=== PATIENT | female | born 1950 | race Caucasian/White ===

== ENCOUNTER 2019-06-21 07:26 | Outpatient (RCR) | payer MEDICARE, OTHER, SELFPAY | END 2019-07-19 23:59 | disposition home or self-care (01) | LOC: SPT 07:26 | PROVIDERS: PCP Physician Assistant; Referring Provider Physician Assistant; Visit Provider Physician Assistant | DX: M70.61 Trochanteric bursitis, right hip (principal); M89.8X1 Other specified disorders of bone, shoulder | CPT/HCPCS: 97110; 97161; G0283 ==

== ENCOUNTER 2019-07-20 06:00 | Outpatient (RCR) | payer MEDICARE, OTHER, SELFPAY | END 2019-08-18 23:59 | disposition home or self-care (01) | LOC: SPT 06:00 | PROVIDERS: PCP Physician Assistant; Referring Provider Physician Assistant; Visit Provider Physician Assistant | DX: M70.61 Trochanteric bursitis, right hip (principal); G89.29 Other chronic pain; M89.8X8 Other specified disorders of bone, other site | CPT/HCPCS: 97110; G0283 ==

== ENCOUNTER 2020-03-09 15:43 | Outpatient (CLI) | payer MEDICARE, OTHER, SELFPAY ==
--- NOTE | 2020-03-09 15:51 | MRR_ITS ---
PROCEDURE INFORMATION: Exam: MR Cervical Spine Without Contrast Exam date and time: 03/09/2020 3:58 PM Age: 69 years old Clinical indication: Neck pain and other: Right arm pain; Patient HX: Pain for 6-8 months; Additional info: Cervical radiculopathy TECHNIQUE: Imaging protocol: Multiplanar magnetic resonance images of the cervical spine without contrast. COMPARISON: MRI Cervical Spine w/o* [id number] 03/19/2016 7:16 AM FINDINGS: Vertebrae: Vertebral body heights are preserved. No compression fractures are noted. Vertebral alignment is physiologic. Spinal cord: Cervical spinal cord is normal in diameter and signal intensity. No focal spinal cord lesion demonstrated. The visualized portion of the posterior fossa is unremarkable. C2-C3: Minimal 2 mm focal central disc protrusion noted. This has increased in size slightly when compared to 03/19/2016. No neural foraminal or central spinal canal stenosis. C3-C4: Normal disc height and signal. Broad-based 2 mm posterior disc protrusion. Mild hypertrophic changes of the facet and uncovertebral joints. Mild central spinal canal stenosis and mild bilateral neural foraminal stenosis. C4-C5: Moderate disc degeneration. 2 mm posterior disc/osteophyte complex. Mild spinal canal stenosis and mild right neural foraminal stenosis noted. C5-C6: Advanced disc degeneration and 3 mm posterior disc/osteophyte complex. Mild central spinal canal stenosis and moderate bilateral neural foraminal stenosis, left worse than right. C6-C7: Mild disc degeneration and 2 mm posterior disc/osteophyte complex. No spinal canal or neural foraminal stenosis. C7-T1: Disc height and signal are normal. No disc bulge or disc protrusion. No spinal canal or neural foraminal stenosis. Vertebral arteries: Expected flow voids in the vertebral arteries. Soft tissues: The cervical soft tissues, as demonstrated, are unremarkable. MR/MR cervical spin wo con* [id number] IMPRESSION: 1. 2 mm disc/osteophyte complex at C4-C5. This is associated with mild spinal canal stenosis and mild right neural foraminal stenosis. This is new when compared to 03/19/2016. 2. 3 mm posterior disc/osteophyte complex at C5-C6. This is associated with mild spinal canal stenosis and moderate bilateral neural foraminal stenosis. Findings at this level have worsened slightly when compared to the previous study. 3. 2 mm focal central disc protrusion without associated stenosis or cord impingement at C2-C3. The protrusion has increased in size slightly when compared to the previous study. 4. Broad-based 2 mm posterior disc protrusion at C3-C4 with mild spinal canal stenosis and mild bilateral neural foraminal stenosis. This is unchanged. 5. 2 mm posterior disc/osteophyte complex at C6-C7. No significant spinal canal or neural foraminal stenosis associated.
== END 2020-03-09 15:44 | disposition home or self-care (01) ==
LOC: RADSHAW 15:47
PROVIDERS: PCP Physician Assistant; Visit Provider Physician Assistant
DX: M25.78 Osteophyte, vertebrae (principal); M50.21 Other cervical disc displacement, high cervical region
CPT/HCPCS: 72141

== ENCOUNTER → 2021-06-20 08:01 | Outpatient (BNVA) | payer MEDICARE, OTHER, SELFPAY | PROVIDERS: PCP Physician Assistant; Referring Provider Physician Assistant; Visit Provider Specialist | DX: G56.03 Carpal tunnel syndrome, bilateral upper limbs (principal) | CPT/HCPCS: 95910 ==

== ENCOUNTER → 2022-02-11 14:35 | Outpatient (BNVA) | payer MEDICARE, OTHER, SELFPAY | PROVIDERS: PCP Physician Assistant; Visit Provider Nurse Practitioner Women's Health | DX: Z12.4 Encounter for screening for malignant neoplasm of cervix (principal); N95.1 Menopausal and female climacteric states | CPT/HCPCS: 87624 ==

== ENCOUNTER 2022-03-11 12:51 | Outpatient (CLI) | payer MEDICARE, OTHER, SELFPAY ==
--- NOTE | 2022-03-11 12:58 | MM_ITS ---
WS: [id number] BILATERAL 3D TOMOSYNTHESIS DIGITAL SCREENING MAMMOGRAPHY WITH CAD CLINICAL INFORMATION: SCREEN HISTORY: Screening mammogram. No current complaints. COMPARISON: 2018 TECHNIQUE: Bilateral CC and MLO views. FINDINGS: The breasts are composed of heterogeneous fibroglandular density tissue, which can limit the detectio n of small underlying mass lesions. Small nodules inner LEFT breast best seen on the cc view appear m ore prominent or new compared to previous. Recommend LEFT breast diagnostic mammography and ultrasoun d. RIGHT breast appears unchanged. Punctate and lucent center calcifications. MM/[place] [id number] IMPRESSION: BI-RADS: 0-Incomplete: Need additional imaging evaluation FOLLOW UP: Need Additional Imaging Recommend LEFT breast diagnostic mammography and ultrasound.
== END 2022-03-11 12:52 | disposition home or self-care (01) ==
LOC: RAD 12:56
PROVIDERS: PCP Physician Assistant; Visit Provider Nurse Practitioner Women's Health
DX: Z12.31 Encounter for screening mammogram for malignant neoplasm of breast (principal)
CPT/HCPCS: 77063; 77067

== ENCOUNTER 2022-03-21 13:01 | Outpatient (CLI) | payer MEDICARE, OTHER, SELFPAY ==
--- NOTE | 2022-03-21 13:30 | XR_ITS ---
WS: [email or web address] SCREENING DEXA SCAN [place] CLINICAL INFORMATION: Z78.0 - Asymptomatic menopausal state COMPARISON: None. FINDINGS: The L1-L4 bone mineral density measures 1.273 g/cm2. This corresponds to a T score score of 0.8 and Z score of 1.9. Left femoral neck bone mineral density measures 0.986 (g/cm2). This corresponds to a T score of -0.2 (no units) and Z score of 0.9 (no units). XR/XR DEXA axial skeleton* [id number] IMPRESSION: Normal bone mineralization lumbar spine. Normal bone mineral density LEFT femor al neck. Patient's FRAX calculated 10 year probability for major osteoporotic fracture i s 7.9 % and osteoporotic hip fracture is 0.6%.
== END 2022-03-21 13:02 | disposition home or self-care (01) ==
LOC: RAD 13:02
PROVIDERS: PCP Physician Assistant; Visit Provider Nurse Practitioner Women's Health
DX: Z78.0 Asymptomatic menopausal state (principal)
CPT/HCPCS: 77080

== ENCOUNTER 2022-04-17 07:46 | Outpatient (CLI) | payer MEDICARE, OTHER, SELFPAY ==
--- NOTE | 2022-04-17 07:54 | MM_ITS ---
WS: [id number] LEFT 3D TOMOSYNTHESIS DIGITAL MAMMOGRAPHY WITH CAD CLINICAL INFORMATION: ABNORMAL MAMM COMPARISON: March 11, 2022 TECHNIQUE: 3 views of the left breast were obtained. FINDINGS: Scattered fibroglandular densities of the left breast. Again seen are the small cluster of nodules in the LEFT breast best seen on the cc view upper inner quadrant. Ultrasound described below. ULTRASOUND BREAST LEFT TECHNIQUE: Ultrasound left breast focused area of concern. CLINICAL INFORMATION: ABNORMAL MAMMO COMPARISON: None. FINDINGS: Ultrasound LEFT breast at the 9 to 12:00. At the 10:00 position is an incidental simple cyst measurin g 6 x 5 x 3 mm 1 cm from the nipple. At the 12:00 position, 1 cm from the nipple is a complex cystic lesion likely complex cyst or dilated duct measuring 7 x 5 x 3 mm. This is probably benign and recommend 6 month follow-up to confirm stab ility with attention to the 12:00 lesion. MM/[place] [id number] IMPRESSION: BI-RADS: 3-Probably Benign FOLLOW UP: 6 Month Follow-up Recommend 6 month follow-up LEFT breast diagnostic mammography and ultrasound.
== END 2022-04-17 07:47 | disposition home or self-care (01) ==
LOC: RAD 07:47
PROVIDERS: PCP Physician Assistant; Visit Provider Nurse Practitioner Women's Health
DX: R92.8 Other abnormal and inconclusive findings on diagnostic imaging of breast (principal); N63.25 Unspecified lump in the left breast, overlapping quadrants
CPT/HCPCS: 76642; 77061; G0279

== ENCOUNTER 2022-10-23 10:49 | Outpatient (CLI) | payer MEDICARE, OTHER, SELFPAY ==
--- NOTE | 2022-10-23 10:55 | MM_ITS ---
WS: [id number] LEFT 3D TOMOSYNTHESIS DIGITAL MAMMOGRAPHY WITH CAD CLINICAL INFORMATION: R92.8 - Other abnormal and inconclusive findings on diagn... HISTORY: Six-month follow-up COMPARISON: April 17, 2022 TECHNIQUE: 3 views of the left breast were obtained. FINDINGS: Scattered fibroglandular densities of the left breast. Stable previously described small cluster of n odules in the LEFT breast best seen on the cc view upper inner quadrant. No other significant interva l changes. Ultrasound described below. A few incidental punctate and lucent centered calcifications. ULTRASOUND BREAST LEFT TECHNIQUE: Ultrasound left breast focused area of concern. CLINICAL INFORMATION: R92.8 - Other abnormal and inconclusive findings on diagn... COMPARISON: April 17, 2022 FINDINGS: Ultrasound LEFT breast 10:00 position 1 cm from the nipple. Tiny cystic-appearing lesion measuring 4 x 2 x 2 mm appears slightly smaller compared to previous. In addition, ultrasound 12:00 position 1 cm from the nipple demonstrates small lobulated cyst or dila joseph duct measuring 3 x 3 x 2 mm stable compared to previous. These lesions have a benign appearance a nd recommend return to annual screening mammography. MM/[place] [id number] IMPRESSION: BI-RADS: 2-Benign FOLLOW UP: 1 Year Follow-up Recommend return to annual screening mammography.
--- NOTE | 2022-10-23 11:45 | US_ITS ---
WS: [id number] LEFT 3D TOMOSYNTHESIS DIGITAL MAMMOGRAPHY WITH CAD CLINICAL INFORMATION: R92.8 - Other abnormal and inconclusive findings on diagn... HISTORY: Six-month follow-up COMPARISON: April 17, 2022 TECHNIQUE: 3 views of the left breast were obtained. FINDINGS: Scattered fibroglandular densities of the left breast. Stable previously described small cluster of n odules in the LEFT breast best seen on the cc view upper inner quadrant. No other significant interva l changes. Ultrasound described below. A few incidental punctate and lucent centered calcifications. ULTRASOUND BREAST LEFT TECHNIQUE: Ultrasound left breast focused area of concern. CLINICAL INFORMATION: R92.8 - Other abnormal and inconclusive findings on diagn... COMPARISON: April 17, 2022 FINDINGS: Ultrasound LEFT breast 10:00 position 1 cm from the nipple. Tiny cystic-appearing lesion measuring 4 x 2 x 2 mm appears slightly smaller compared to previous. In addition, ultrasound 12:00 position 1 cm from the nipple demonstrates small lobulated cyst or dila joseph duct measuring 3 x 3 x 2 mm stable compared to previous. These lesions have a benign appearance a nd recommend return to annual screening mammography. US/US breast LT limited* [id number] IMPRESSION: BI-RADS: 2-Benign FOLLOW UP: 1 Year Follow-up Recommend return to annual screening mammography.
== END 2022-10-23 10:50 | disposition home or self-care (01) ==
LOC: RAD 10:50
PROVIDERS: PCP Physician Assistant; Visit Provider Nurse Practitioner Women's Health
DX: R92.8 Other abnormal and inconclusive findings on diagnostic imaging of breast (principal); N64.89 Other specified disorders of breast
CPT/HCPCS: 76642; 77061; G0279

== ENCOUNTER 2022-11-12 07:54 | Outpatient (CLI) | payer MEDICARE, OTHER, SELFPAY ==
--- NOTE | 2022-11-12 | ECG_ITS ---
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 Interpretive Statements NAME OF STUDY: EXERCISE SESTAMIBI STRESS TEST INDICATION: [Chest Pain on exertion] EXERCISE DATA: The patient was exercised by Mark protocol. Baseline heart rate was 54 beats per minute. Baseline blood pressure was 145/92 millimeters of mercury. Target heart rate was 127 beats per minute. Maximum heart rate achieved was 143, which was 112 % of the target heart rate. Maximum blood pressure was 226/68 millimeters of mercury. Total exercise time was 6 minutes 30 seconds. Maximum METs achieved was 10.2. The reason for ending the test was completion of protocol. The patient complained of shortness of breath during the stress test, which then resolved at the end of the test. ELECTROCARDIOGRAM: BASELINE: Showed sinus rhythm, normal axis, no significant ST-T changes at the baseline noted. [] EXERCISE: At the peak exercise level, [] No significant ST-T changes suggestive of ischemia noted. [] RECOVERY: During the recovery period, heart rate dropped appropriately. No significant ST-T changes in the recovery suggestive of ischemia noted. [] CONCLUSION: 1. Exercise capacity good. 2. Heart rate response was appropriate 3. Blood pressure response was appropriate 4. Symptoms not suggestive of ischemia. 5. Electrocardiogram portion of the stress test was not suggestive of ischemia. 6. Nuclear scan will be documented separately. Electronically Signed On 11-23-2022 15:06:31 CDT by Stone Luevano M.D. [id number]
[2022-11-12 08:26] VITALS: BMI 29.4
--- NOTE | 2022-11-12 08:34 | NMCV_ITS ---
NM yuli perf SPECT r/s* [id number] Alpa Major Age: 72 Gender: F : 1950 Exam Date: 11/12/2022 08:34 Ordering Phys: Kenia Anthony Technologist: MAKENZIE Borrego Exam Location: [facility] Indications: CHEST PAIN STRESS TEST Please see separate stress test report in [facility] for full findings IMAGE PROTOCOL Rest/Stress 1 Exercise Day Radiopharmaceutical Dose (mCi) Administration Site Administered by Rest: Tc-99m 10.6 IV MAKENZIE Borrego Sestamibi Stress:Tc-99m 32.5 IV MAKENZIE Ulrich Sestamibi Rest: 12-Nov-2022 60 Discovery 630 Stress: 12-Nov-2022 15 Discovery 630 Radiopharmaceutical was injected at 90 % maximum heart rate. Images obtained in supine and prone position. SPECT RESULTS Technical Quality: Excellent Raw Data Analysis: Normal Image Corrections: No attenuation or motion correction applied Summed Stress Score: 1 Summed Rest Score: 1 Summed Difference Score: 1 PERFUSION FINDINGS Very small sized perfusion defect noted in apical wall. This is consistent with attenuation artifact. No evidence of significant ischemia seen. FUNCTIONAL RESULTS (calculated via Gated SPECT) Stress Image LV EF (%): 74 Stress EDV (mL):88 TID: 0.95 Stress ESV (mL):23 FUNCTIONAL FINDINGS: There is normal left ventricular systolic function. IMPRESSIONS 1. Attenuation artifact seen in the apical wall. No evidence of ischemia 2. LV systolic function is normal Stone Luevano MD (Electronically Signed) Final Date: 17 November 2022 10:04 S
[2022-11-12 10:07] VITALS: BP 163/79; PULSE 58
== END 2022-11-12 07:55 | disposition home or self-care (01) ==
LOC: CDL 07:55
PROVIDERS: PCP Physician Assistant; Visit Provider Physician Assistant
DX: R07.9 Chest pain, unspecified (principal)
CPT/HCPCS: 36415; 78452; 93017; A9500

== ENCOUNTER 2023-04-07 21:29 | Emergency (ER) | payer MEDICARE, OTHER, SELFPAY ==
[2023-04-07 21:34] VITALS: BP 188/89; PULSE 79; RESP 18; TEMP 36.9; O2SAT 96; BMI 29.2
--- NOTE | 2023-04-07 21:48 | ED_ITS ---
HPI - Dizziness 2 General: Chief Complaint: Dizziness Stated Complaint: vertigo, N/V Time Seen by Provider: 04/07/23 21:36 History of Present Illness: HPI Narrative: Patient presents to the ER by EMS with complaints of nausea vomiting and severe vertigo. Patient states it started about 730 this morning it has been constant the entire day. Patient is not been able to eat or drink anything throughout the day secondary to nausea and vomiting. She has been able to keep her medicines down though. Patient states is worse when she lays on her left side and better when she lays on her back or her right side. Patient states she is never had this before. Patient has no focal neurologic deficits. Patient's blood pressure upon arrival was extremely high at 188/89. Review of Systems 2 General: Reports: 10 or more systems reviewed and unremarkable except in HPI and below PFSH ED 2 PFSH: Medical History No pertinent past medical history neg dx- htn, dm, dvt/pe, Urinary incontinence Menopause syndrome Asthma Gastroesophageal reflux Hyperlipidemia Hypothyroidism Surgical History History of hip replacement 10/30/20- right side History of cataract extraction (~08/2016) bilateral History of hysteroscopy (07/31/15) Hysteroscopy, polypectomy, D&C. Dx: PMPB, Polyp, Fibroid. Performed by Dr. Ahn at [facility] in [place], [place] History of nasal sinusotomy (~2014) performed in [place] History of hiatal hernia (~2007) Repair performed in [place], [place] Family History Mother Hypertension Hypercholesteremia Sister Hypertension Hypercholesteremia Thyroid disease Denies family history of Colon cancer Ovarian cancer Diabetes Breast cancer Uterine cancer Stroke Social History Substance/Drug Use: never Physical Exam 2 Const: COMMON NORMALS: no acute distress, average body habitus, patient oriented x3, no limitations, healthy appearing, alert and well nourished HENMT: COMMON NORMALS: normocephalic, atraumatic, hearing grossly normal bilaterally, external ears normal, Normal external nose present, moist oral mucous membranes and oropharynx normal HEAD & SCALP: normocephalic and atraumatic NOSE: Normal external nose present EXTERNAL EAR: Yes external ears normal Eye: COMMON NORMALS: Equal, round and reactive pupils present, EOMs intact bilaterally, conjunctivae normal and no scleral icterus CONJUNCTIVA: Yes conjunctivae normal PUPIL: Yes Equal, round and reactive pupils present Neck/C-Spine: COMMON NORMALS: full ROM, no lymphadenopathy, supple, no meningeal signs, no JVD and Thyroid normal THYROID: Thyroid normal Chest: COMMONS NORMALS: normal inspection of the chest and normal palpation of entire chest wall Resp: COMMON NORMALS: normal respiratory effort, No retractions, No use of accessory muscles and clear to auscultation bilaterally AUSCULTATION: clear to auscultation bilaterally Cardio: COMMON NORMALS: no JVD, regular rate, regular rhythm, S1 normal heart sound present, S2 normal heart sound present, No gallops present (Cardio), No clicks present (Cardio), No murmurs present (Cardio) and No rub (Cardio) R ATE: regular rate RHYTHM: regular rhythm HEART SOUNDS: S1 normal heart sound present and S2 normal heart sound present GI: COMMON NORMALS: Normal to inspection, nondistended, normoactive bowel sounds present, Soft to palpation, non-tender, No hepatosplenomegaly present and no masses PALPATION: Yes Soft to palpation and Yes No hepatosplenomegaly present Neuro: COMMON NORMALS: patient oriented x3 SENSORIUM/ORIENTATION: Yes alert MENINGEAL SIGNS: Yes no meningeal signs Course 2 Vital Signs: Vital signs: Vital Signs Temperature 98.5 F 04/07/23 21:34 Pulse Rate 62 04/08/23 00:20 Respiratory Rate 18 04/07/23 21:34 Blood Pressure 165/77 04/08/23 00:20 Pulse Oximetry 96 04/08/23 00:20 Oxygen Delivery Me thod Room Air 04/08/23 00:20 MDM - Dizziness Medical Decision Making Patient presents to the ER with complaints of nausea vomiting and vertigo. Patient had lab work included CBC CMP lipase urine all of which was essentially benign. Patient was given 1 L normal saline, meclizine 50 mg, and clonidine 0.1 mg. Blood pressure went down from 188/89-166 5/77. Patient will be discharged home to follow-up with her PCP in 7 to 10 days or sooner as needed. Differential Diagnosis Likely benign paroxysmal positional vertigo; Unlikely adverse reaction to drug, orthostatic hypotension, vertebral basilar insufficiency, cerebrovascular accident, acute vestibular neuronitis or transient cerebral ischemia Medical Records I reviewed the patient's medical records. Lab Data I reviewed the patient's lab results. 04/07/23 21:03 04/07/23 21:03 Laboratory Results WBC 8.95 10^3/uL (3.29-11.43) 04/07/23 21: RBC 5.38 10^6/uL (3.85-5.65) 04/07/23 21: Hgb 16.10 g/dL (11.27-16.99) 04/07/23: Hct 48.1 % (36-47) H 04/07/23: MCV 89.4 fl (85-98) 04/07/23 21: MCH 29.9 pg (27-33) 04/07/23: MCHC 33.5 g/dL (30-55) 04/07/23 21: RDW 12.6 % (12.1-15.1) 04/07/23 21: Plt Count 340 10^3/cmm (157-399) 04/07/23 21: MPV 9.0 fL (7.4-10.4) 04/07/23 21: Neut % (Auto) 72.8 % 04/07/23 21: Lymph % (Auto) 22.0 % 04/07/23 21: [place] % (Auto) 4.5 % 04/07/23: Eos % (Auto) 0.3 % 04/07/23: Baso % (Auto) 0.2 % 04/07/23: Neut # (Auto) 6.51 10^3/uL (1.8-7.7) 04/07/23: Lymph # (Auto) 2.0 10^3/uL (0.8-4.8) 04/07/23 21: [place] # (Auto) 0.4 10^3/uL (0.2-0.9) 04/07/23 21: Eos # (Auto) 0.0 10^3/uL (0.0-0.8) 04/07/23 21:03 Baso # (Auto) 0.0 10^3/uL (0.0-0.1) 04/07/23 21:03 Nucleated RBC % (auto) 0 % 04/07/23 21:03 Nucleated RBCs # 0.0 /100WBC 04/07/23 21:03 Sodium 140 mmol/L (136-145) 04/07/23 21:03 Potassium 3.9 mmol/L (3.5-5.1) 04/07/23 21:03 Chloride 100 mmol/L (98-107) 04/07/23 21:03 Carbon Dioxide 26 mmol/L (22-29) 04/07/23 21:03 Anion Gap 17.9 (5-19) 04/07/23 21:03 BUN 12 mg/dL (8-23) 04/07/23 21:03 Creatinine 0.7 mg/dL (0.5-0.9) 04/07/23 21:03 GFR Calculation 82.7 mL/min (90-130) L 04/07/23 21:03 Glucose 123 mg/dL (65-115) H 04/07/23 21:03 Calculated Osmolality 291 mOsm/kg (285-295) 04/07/23 21:03 Calcium 11.8 mg/dL (8.5-10.5) H 04/07/23 21:03 Magnesium 1.8 mg/dL (1.7-2.3) 04/07/23 21:03 Total Bilirubin 0.7 mg/dL (0.15-1.2) 04/07/23 21:03 AST 32 U/L (0-32) 04/07/23 21:03 ALT 35 U/L (0-33) H 04/07/23 21:03 Alkaline Phosphatase 90 U/L (35-105) 04/07/23 21:03 Total Protein 8.1 g/dL (6.6-8.7) 04/07/23 21:03 Albumin 5.1 g/dL (3.5-5.2) 04/07/23 21:03 Globulin 3.0 g/dL (1.3-4.6) 04/07/23 21:03 Lipase 47 U/L (13-60) 04/07/23 21:03 Urine Color Yellow (Yellow) 04/07/23 23:53 Urine Appearance Clear (CLEAR) 04/07/23 23:53 Urine pH 5 (5-7) 04/07/23 23:53 Ur Specific [place] 1.020 (1.005-1.030) 04/07/23 23:53 Urine Protein 2+ (Negative) H 04/07/23 23:53 Urine Glucose (UA) Norm (Normal) 04/07/23 23:53 Urine Ketones 1+ (Negative) H 04/07/23 23:53 Urine Blood Trace (Negative) H 04/07/23 23:53 Urine Nitrate Negative (Negative) 04/07/23 23:53 Urine Bilirubin Neg (Negative) 04/07/23 23:53 Urine Urobilinogen Norm mg/dL (Negative) 04/07/23 23:53 Ur Leukocyte Esterase Negative (Negative) 04/07/23 23:53 Urine RBC 0-4 /hpf (0-2) H 04/07/23 23:53 Urine WBC 0-4 /hpf (0-5) H 04/07/23 23:53 Ur Squamous Epith Cells 0-4 /hpf (0-5) H 04/07/23 23:53 Amorphous Sediment Not Reportable 04/07/23 23:53 Urine Bacteria Trace /hpf (NONE) 04/07/23 23:53 Urine Mucus Trace /hpf 04/07/23 23:53 All radiology interpretation(s) finalized by discharge Discharge Plan Discharge Patient Disposition: Home Clinical Impression: Vertigo, Nausea & vomiting Condition: Stable Prescriptions: No Action dexlansoprazole [Dexilant] 30 mg capsule,biphase delayed releas 60 mg PO DAILY Rx Instructions: 340B estradiol [Estrace] 0.01 % (0.1 mg/gram) cream 1 g vaginal .2-3 times weekly Qty: 42.5 3RF Rx Instructions: space out doses escitalopram oxalate 20 mg tablet 20 mg PO DAILY oxybutynin chloride 5 mg tablet 5 mg PO BID estradiol 1 mg tablet 1 mg PO DAILY Qty: 90 3RF medroxyprogesterone 2.5 mg tablet 2.5 mg PO DAILY Qty: 90 3RF levothyroxine 88 mcg capsule 88 mcg PO DAILY fluticasone propion-salmeterol [Advair Diskus] 250-50 mcg/dose blister with device 1 inh inhalation BID atorvastatin [Lipitor] 40 mg tablet 40 mg PO DAILY celecoxib [Celebrex] 200 mg capsule 200 mg PO BID hydrocortisone 2.5 % cream 1 applic topical BID PRN meclizine 25 mg tablet 25 mg PO TID PRN Discharge Orders: Discharge ED (Routine); Ordered 04/08/23 Ordered By: Salvatore Powres Referrals: Kenia Anthony PA [Primary Care Provider] - 1 week Patient Instructions: Acute Nausea and Vomiting (DC), Vertigo (ED) Activity Restrictions/Additional Instructions: Please take all medicine as prescribed. Please push clear liquids. Please follow-up with your family practitioner within the next 7 to 10 days for further evaluation and treatment. Coding Level of Care Code ED Reading Instructor for Bang Silverman
[2023-04-07 21:57] VITALS: BP 188/89
[2023-04-07] MEDS: cloNIDine 0.1 mg Tablet PO (21:57)
[2023-04-07] MEDS: meclizine 25 mg tablet 50 MG PO (21:57)
[2023-04-07 22:00] VITALS: BP 187/67; PULSE 66; O2SAT 96
[2023-04-07 22:04] LABS: Basophils % 0.2 %; Eosinophils % 0.3 %; Hematocrit 48.1 % (36-47); Mean Corpuscular HGB Conc 33.5 g/dL (30-55); Mean Corpuscular Hemoglobin 29.9 pg (27-33); Mean Corpuscular Volume 89.4 fl (85-98); Monocytes # 0.4 10^3/uL (0.2-0.9); Monocytes % 4.5 %; Neutrophils # 6.51 10^3/uL (1.8-7.7); Neutrophils % 72.8 %; Nucleated Red Blood Cells % 0 %; Platelet Count 340 10^3/cmm (157-399); Red Blood Count 5.38 10^6/uL (3.85-5.65); Red Cell Distribution Width 12.6 % (12.1-15.1); White Blood Count 8.95 10^3/uL (3.29-11.43)
[2023-04-07 22:27] LABS: Alanine Aminotransferase 35 U/L (0-33); Albumin Level 5.1 g/dL (3.5-5.2); Alkaline Phosphatase 90 U/L (35-105); Anion Gap 17.9 (5-19); Aspartate Amino Transferase 32 U/L (0-32); Blood Urea Nitrogen 12 mg/dL (8-23); Calcium 11.8 mg/dL (8.5-10.5); Carbon Dioxide 26 mmol/L (22-29); Chloride 100 mmol/L (98-107); Glomerular Filtration Rate 82.7 mL/min (90-130); Glucose 123 mg/dL (65-115); Lipase 47 U/L (13-60); Magnesium 1.8 mg/dL (1.7-2.3); Osmolality Calculated 291 mOsm/kg (285-295); Potassium 3.9 mmol/L (3.5-5.1); Sodium 140 mmol/L (136-145); Total Bilirubin 0.7 mg/dL (0.15-1.2); Total Protein 8.1 g/dL (6.6-8.7)
[2023-04-07 23:09] VITALS: BP 157/47; PULSE 61; O2SAT 96
[2023-04-08 00:18] LABS: Add Urine Microscopic? YES; Bilirubin Urine Neg (Negative); Blood Urine Trace (Negative); Glucose Urine UA Norm (Normal); Ketones Urine 1+ (Negative); Leukocyte Esterase Urine Negative (Negative); Nitrate Urine Negative (Negative); Protein Urine 2+ (Negative); Urine Appearance Clear (CLEAR); Urine Color Yellow (Yellow); Urobilinogen Urine Norm (Negative); pH Urine 5 (5-7)
[2023-04-08 00:19] LABS: Add Urine Culture? No; Bacteria Urine TRACE /hpf; Mucus Urine TRACE /hpf; RBC Urine 0-4 /hpf (0-2); Squamous Epithelial Cell Urine 0-4 /hpf (0-5); WBC Urine 0-4 /hpf (0-5)
[2023-04-08 00:20] VITALS: BP 165/77; PULSE 62; O2SAT 96
== END 2023-04-08 00:45 | disposition home or self-care (01) ==
PROVIDERS: Emergency Provider Emergency Medicine; PCP Physician Assistant
DX: R42 Dizziness and giddiness (principal); R11.2 Nausea with vomiting, unspecified; E78.5 Hyperlipidemia, unspecified
CPT/HCPCS: 80053; 81001; 83690; 83735; 85025; 99283; J8597

== ENCOUNTER 2023-10-01 08:22 | Outpatient (CLI) | payer MEDICARE, OTHER, SELFPAY ==
--- NOTE | 2023-10-01 08:30 | MR_ITS ---
WS: [id number] MRI BRAIN WITH HIGH-RESOLUTION IMAGING THROUGH THE INTERNAL AUDITORY CANALS WITHOUT AND WITH CONTRAST HISTORY: DIZZINESS GIDDINESS/BENIGN PAROXYSMAL VERTIGO, L EAR COMPARISON: None available. TECHNIQUE: Multiplanar, multisequence imaging is performed through the brain. Additional 3 mm imaging performed in multiple planes through the internal auditory canal. Postcontrast imaging with 18 ml's of MultiHance. No acute intracranial hemorrhage, midline shift, edema or mass effect. Minimal cerebral atrophy and small vessel ischemic disease. No prior infarct. Ventricles and extra-axial spaces are normal. No inferior displacement of cerebellar tonsils. Clivus and pituitary gland are normal. Internal and external auditory canals: Unremarkable. Cranial nerves VII and VIII complexes: Unremarkable. No enhancement or mass. Cerebellopontine angles: Normal. Paranasal sinuses: Normal. Mastoid air cells: Normal. Calvarium and scalp: Normal. Visualized [place] and dural venous sinuses demonstrate no abnormality. MR/MR iac's wo/w con* [id number] IMPRESSION: 1. No signal abnormality or enhancement along the internal auditory canals. Th e cranial nerve is negative also. 2. Very mild cerebral atrophy and small vessel ischemic disease. No prior infa rct. 3. No hemorrhage. 4. No signal abnormality involving the mastoid air cells.
[2023-10-01] MEDS: gadobenate dimeglumine 20 mL vial IV (08:49)
== END 2023-10-01 08:23 | disposition home or self-care (01) ==
LOC: RAD 08:23
PROVIDERS: PCP Physician Assistant; Visit Provider Specialist
DX: R42 Dizziness and giddiness (principal); H81.12 Benign paroxysmal vertigo, left ear
CPT/HCPCS: 70553; A9577

== ENCOUNTER 2024-04-07 12:40 | Outpatient (CLI) | payer MEDICARE, OTHER, SELFPAY ==
--- NOTE | 2024-04-07 12:55 | MM_ITS ---
WS: [email or web address] BILATERAL SCREENING DIGITAL TOMOSYNTHESIS MAMMOGRAM WITH CAD HISTORY: SCREENING COMPARISON: 10/23/2022, 03/11/2022 Bilateral CC and MLO views with tomosynthesis and synthetic mammography submitted. Computer aided det ection analyzed. Breast composition: There are scattered areas of fibroglandular density. No suspicious masses, microc alcifications or architectural distortion. MM/MM scr BI tomosynthesis [id number] IMPRESSION: BI-RADS: 2 - Benign. FOLLOW UP: 1 Year Follow-up
== END 2024-04-07 12:49 | disposition home or self-care (01) ==
PROVIDERS: PCP Physician Assistant; Visit Provider Physician Assistant
DX: Z12.31 Encounter for screening mammogram for malignant neoplasm of breast (principal); R92.323 Mammographic fibroglandular density, bilateral breasts
CPT/HCPCS: 77063; 77067

== ENCOUNTER 2024-10-19 15:06 | Outpatient (CLI) | payer MEDICARE, OTHER, SELFPAY ==
--- NOTE | 2024-10-19 15:10 | MR_ITS ---
WS: [id number] MRI LEFT HIP WITHOUT CONTRAST. COMPARISON: Radiograph 10/06/2024 Multiplanar, multisequence imaging is performed without contrast. Normal position of the femoral head within the acetabulum. No fracture or marrow edema. Visualized SI joint is normal. Mildly heterogeneous signal along the superior margin of the acetabulum is probably related to osteopenia and arthritis. No fracture identified. Very small amount of fluid and increased signal in the subtrochanteric bursa. No joint effusion. Mild symmetric muscle atrophy. No masses are identified. Prior RIGHT hip arthroplasty. There is a very small amount of increased T2 signal in the gluteus medius tendon near the insertion to the greater trochanter. There is fluid centrally in the gluteus medius tendon. Along with mild tendinopathy. MR/MR hip LT wo con* [id number] IMPRESSION: 1. Partial interstitial tear gluteus medius tendon near the insertion to the g reater trochanter with mild associated tendinopathy. 2. Mild arthropathy at the LEFT hip. 3. Prior RIGHT hip arthroplasty. 4. No marrow edema or fracture.
== END 2024-10-19 15:07 | disposition home or self-care (01) ==
LOC: RAD 15:06
PROVIDERS: PCP Physician Assistant; Visit Provider Physician Assistant
DX: S76.012A Strain of muscle, fascia and tendon of left hip, initial encounter (principal); M16.12 Unilateral primary osteoarthritis, left hip; X58.XXXA Exposure to other specified factors, initial encounter
CPT/HCPCS: 73721

== ENCOUNTER 2025-02-18 06:30 | Outpatient (RCR) | payer MEDICARE, OTHER, SELFPAY | END 2025-03-19 23:59 | disposition home or self-care (01) | LOC: SPT 06:30 | PROVIDERS: Visit Provider Physician Assistant | DX: S76.012D Strain of muscle, fascia and tendon of left hip, subsequent encounter (principal) | CPT/HCPCS: 97110; 97161 ==

== ENCOUNTER 2025-03-20 05:00 | Outpatient (RCR) | payer MEDICARE, OTHER, SELFPAY | END 2025-04-19 23:59 | disposition home or self-care (01) | LOC: SPT 05:00 | PROVIDERS: Visit Provider Physician Assistant | DX: S76.012D Strain of muscle, fascia and tendon of left hip, subsequent encounter (principal); X58.XXXD Exposure to other specified factors, subsequent encounter | CPT/HCPCS: 97110 ==